=== PATIENT | female | born 1960 | race Caucasian/White ===

== ENCOUNTER 2019-12-26 11:34 | Emergency (ER) | payer OTHER ==
[~2019-12-26] VITALS: Ht 160 cm; Wt 65.8 kg
[2019-12-26 11:37] VITALS: Ht 160 cm; Wt 65.8 kg
[2019-12-26 14:51] VITALS: BP 166/71
== END 2019-12-26 14:51 | disposition home or self-care (01) ==
LOC: ED 11:34
DX: S13.9XXA Sprain of joints and ligaments of unspecified parts of neck, initial encounter (principal); Z90.711 Acquired absence of uterus with remaining cervical stump; V49.49XA Driver injured in collision with other motor vehicles in traffic accident, initial encounter; Y93.I9 Activity, other involving external motion; Y92.413 State road as the place of occurrence of the external cause; Y99.8 Other external cause status